=== PATIENT | female | born 1995 | race Caucasian/White ===

== ENCOUNTER 2020-01-04 14:25 | Outpatient (CLI) | payer SELFPAY ==
[2020-01-04] VITALS (20 sets, daily range): BP systolic 115–158; BP diastolic 63–88; PULSE 50–98; TEMP 36.7–36.8; O2SAT 82–100; BMI 25.4
[2020-01-04 16:02] LABS: Absolute Lymphocyte Count 3.28 X10^3/uL (0.83-4.51); Absolute Neutrophil Count 6.6 X10^3/uL (2.0-7.7); Basophil# 0.05 X10^3/uL; Basophil% 0.5 % (0-1); Eosinophil# 0.05 X10^3/uL; Eosinophils% 0.5 % (0-5); Hemoglobin 12.6 g/dL (12.0-15.0); Lymphocyte # 3.28 X10^3/ul (4.0); Lymphocyte % 31.1 % (19-41); Mean Corp Hgb Conc 34.1 g/dL (32-36); Mean Corpuscular Hgb 28.3 pg (27.0-32.0); Mean Corpuscular Volume 83.1 fL (81-99); Mean Platelet Vol. 10.9 fl (6.2-12.0); Monocyte# 0.58 X10^3/uL; Monocyte% 5.5 % (0-10); NRBC Flagged by Analyzer 0 % (0-5); Neutrophil # 6.57 X10^3/uL (2.7-7.7); Neutrophil % 62.1 % (47-70); Platelet Count 234 K/mm3 (150-450); RBC Distribution Width CV 12.4 % (11.6-14.6); RBC Distribution Width SD 37.5 fl (35.1-43.9); Red Blood Count 4.45 M/mm3 (4.2-5.4); White Blood Count 10.6 K/mm3 (4.4-11.0)
[2020-01-04 16:03] LABS: Protein, Urine (Random) 20.9 mg/dL (<11.9); Protein:Creat Ratio 1089 mg/g CRE (0-200)
[2020-01-04 16:19] LABS: AST(SGOT) 173 U/L (15-37); Alanine Aminotransfer ALT/SGPT 241 U/L (13-56); Creatinine, Serum 1.07 mg/dL (0.55-1.02); EST Glomerular Filtration Rate 68 mL/min (>60); Est Glom Filt Rate - Afr Amer 82 mL/min (>60)
[2020-01-04 16:23] LABS: International Normalized Ratio 0.9; Prothrombin Time (Protime)PT. 11.9 SECONDS (11.7-14.9)
[2020-01-04 16:24] LABS: Partial Thromboplast Time 30.9 Seconds (24.1-36.2)
--- NOTE | 2020-01-04 16:36 | HP.PCM_ITS ---
- Problem List (1) HELLP syndrome Status: Acute (2) Late care Status: Acute Comment: received care by visual display manager Linn Manjarrez, first visit at 16 weeks with good dates, no labwork or ultrasounds performed this . History Date of Admission: 01/04/20 Final RADHA: 01/22/20 Gestational age: 37 Weeks and 3 Days History of this : This is a 24 year-old, at 37w3d weeks gestational age presents as a referral from her visual display manager due to elevated blood pressures 140s over 80s at home with abdominal pain and intermittent headaches and visual changes. Patient denies any vaginal bleeding or loss of fluid but complains of abdominal pain and irregular contractions and firm abdomen. heart tones upon initial p resentation are reassuring. Smoking Status: Never smoker Alcohol: None Number of Fetus(es): 1 NST - FHR Rate Baby A Baseline: 130 Variability:: Moderate Accelerations:: 15 x 15 Decelerations:: None NST Reactive:: Yes FHR Category:: Category I Uterine Activity:: q 2-3 History Past Pregnancies: Past Pregnancies Delivery Date Name GA/ Weeks Outcome Route Wt Sex Labor Length Anesthesia Delivery Location Provider FOB Labs: Mom's Problem List Problem Status Onset Code HELLP syndrome Acute O14.20 Late care Acute O09.30 Mom's Labs & Results 01/04/20 01/04/20 01/04/20 15:20 15:20 15:20 WBC 10.6 RBC 4.45 Hgb 12.6 Hct 37.0 MCV 83.1 MCH 28.3 MCHC 34.1 RDW Std Deviation 37.5 RDW Coeff of Xavier 12.4 Plt Count 234 MPV 10.9 Immature Gran % (Auto) 0.300 Neut % (Auto) 62.1 Lymph % (Auto) 31.1 Toole % (Auto) 5.5 Eos % (Auto) 0.5 Baso % (Auto) 0.5 Absolute Neuts (auto) 6.6 Absolute Lymphs (auto) 3.28 Nucleated RBC % 0 PT 11.9 INR 0.9 APTT 30.9 Fibrinogen Creatinine Est GFR (MDRD) Af Amer Est GFR (MDRD) Non-Af Uric Acid AST ALT U Random Total Protein Urine Creatinine Protein/Creatinin Ratio Chlam trachomat DNA PCR Pending N.gonorrhoeae DNA (PCR) Pending Group B Strep DNA Pending Specimen Comment Pending 01/04/20 01/04/20 01/04/20 15:20 15:20 16:00 WBC RBC Hgb Hct MCV MCH MCHC RDW Std Deviation RDW Coeff of Xavier Plt Count MPV Immature Gran % (Auto) Neut % (Auto) Lymph % (Auto) Toole % (Auto) Eos % (Auto) Baso % (Auto) Absolute Neuts (auto) Absolute Lymphs (auto) Nucleated RBC % PT INR APTT Fibrinogen Pending Creatinine 1.07 H Est GFR (MDRD) Af Amer 82 Est GFR (MDRD) Non-Af 68 Uric Acid 6.0 AST 173 H ALT 241 H U Random Total Protein 20.9 H Urine Creatinine 19.20 Protein/Creatinin Ratio 1089 H Chlam trachomat DNA PCR N.gonorrhoeae DNA (PCR) Group B Strep DNA Specimen Comment Social History Smoking Status Never smoker Expected Infant Delivery Method: Spontaneous Vaginal Review of Systems Constitutional: Reports: Malaise. Denies: Fever Eyes: Reports: Blurred vision, Vision Change HEENT: Reports: Head Aches, Visual Changes Cardiovascular: Denies: Chest Pain, Palpitations Respiratory: Denies: Cough, Shortness of Breath, Wheezing Gastrointestinal: Reports: Abdominal Pain. Denies: Diarrhea, Nausea, Vomiting Genitourinary: Denies: Dysuria, Hematuria Gynecological: Denies: Vaginal bleeding Musculoskeletal: Denies: Joint Pain, Muscle pain Skin: Denies: Lesions, Rash Neurological: Denies: Blurred vision, Focal weakness, Headaches Psychiatric: Denies: Anxiety, Depression Endocrine: Denies: Heat/ Cold Intolerance Hematologic/ Lymphatic: Denies: Easy Bruising, Easy Bleeding Physical Exam Vitals: Vital Signs Temp Pulse BP 98.3 F 55 L 133/75 H 01/04/20 15:14 01/04/20 16:21 01/04/20 16:21 General: Alert, Cooperative, No apparent distress HEENT: Atraumatic, Normocephalic. Negative for: Thyromegaly, Lymphadenopathy Cardiovascular: Regular rate Lungs: Normal air movement Abdomen: Soft, Non Tender, Gravid Neurological: Deep Tendon Reflexes 2+/4 and Symmetrical, Neuro grossly intact. Negative for: Clonus BARREL WASHER MACHINE: Normal external genitalia. Negative for: Vulvar lesions Estimated gestational size: Appropriate for gestational size Presentation: Cephalic Cervix Dilation (cm): 3 Station: -1 Assessment/Plan All Active Problems HELLP syndrome (Acute) Late care (Acute) This is a 24 year-old, at 37w3d weeks gestational age presents with HELLP syndrome. recommend immediate transport, given 6g mag bolus then .5g/hr maintenance per MFM instruction. reassuring FHT- on CFM until transport d/w MFM attending, patient, and box blank machine operator helper. late care- draw NOB labs at [facility] prepare for IOL for Inpatient E&M: 13321 Init Hosp L3 52xxx-59xxx: 79593-50 non-stress test Interp
[2020-01-04] MEDS: Magnesium Sulfate 4gm/100mL 4 GM/100 ML IV.SOLN. IV (16:50)
[2020-01-04 16:55] LABS: Bacteria 0 SEEN /hpf (None Seen); Mucous, Urine 0 SEEN /hpf (<or=2+); Red Blood Cells-Urine 0 SEEN /hpf (0-5); Squamous Epithelial Cells - UA 0 SEEN /hpf (5-10); White Blood Cells 0 SEEN /hpf (0-5)
[2020-01-04 17:02] LABS: Color, Urine Yellow (Yellow); Glucose, Dipstick Normal (Normal); Ketone-Dipstick Negative (Negative); Leukocyte Esterase-Dipstick Negative /ul (Negative); Nitrite-Dipstick Negative (Negative); Occult Blood-Urine Negative /ul (Negative); Protein-Dipstick 30 mg/dl (Negative); Urine Bilirubin Dipstick Negative (Negative); Urine Clarity Clear (Clear); Urine Urobilinogen Normal (Normal); Urine pH 6.5 (5.0 - 8.0)
--- NOTE | 2020-01-04 17:03 | NURSING ---
1655 reflexes +2 on bicep and +1 on patellar; lungs clear; no vision changes; pain over rt upper abdomen / epigastric area is still present pt states that it is better than earlier
[2020-01-04 17:06] LABS: Group B Strep DNA By PCR Negative (Negative); Internal Control PASS; Probe Check PASS; Specimen Processing Control PASS
[2020-01-04] MEDS: Magnesium Sulfate 4gm/100mL 2 GM/50 ML IV.SOLN. IV (17:07)
[2020-01-04] MEDS: Magnesium Sulfate 20 GM/500 ML BAG IV (17:17)
[2020-01-04 17:29] LABS: Amphetamine Urine VISTA NEGATIVE (<1000 ng/mL); Barbiturate Urine VISTA NEGATIVE (< 200 ng/mL); Benzodiazepine Urine VISTA NEGATIVE (< 200 ng/mL); Cocaine Urine VISTA NEGATIVE (< 300 ng/mL); Ecstacy Urine VISTA NEGATIVE (< 500 ng/mL); Methadone Urine VISTA NEGATIVE (< 300 ng/mL); PCP Urine VISTA NEGATIVE (< 25 ng/mL); THC Urine VISTA NEGATIVE (< 50 ng/mL); Vista UDS pH Range 6
[2020-01-04 17:39] LABS: Fibrinogen 531 mg/dl (203-444)
[2020-01-04 17:55] LABS: Rubella IgG 0.6 IU/mL
[2020-01-04 19:07] LABS: HIV - WCH Non-Reactive (Nonreactive); Hepatitis B Surface Antigen Non-Reactive (Nonreactive); Hepatitis C Antibody Non-Reactive (Nonreactive)
[2020-01-04 19:08] LABS: Chlamydia Trachomatis by PCR Negative (Negative); Neisserai gonorrhoeae by PCR Negative (Negative); Probe Check PASS; Sample Adequacy Control PASS; Specimen Processing Control PASS
[2020-01-07 01:34] LABS: Rapid Plasmin Reagin (RPR) NONREACTIVE (NONREACTIVE)
== END 2020-01-04 17:40 | disposition short-term general hospital (02) ==
PROVIDERS: Referring Provider Obstetrics & Gynecology; Visit Provider Obstetrics & Gynecology
DX: O14.23 HELLP syndrome (HELLP), third trimester (principal); Z3A.37 37 weeks gestation of pregnancy; O09.33 Supervision of pregnancy with insufficient antenatal care, third trimester
CPT/HCPCS: 36415; 59025; 59050; 80307; 81001; 82565; 82570; 84156; 84450; 84460; 84550; 85025; 85027; 85384; 85610; 85730; 86592; 86703; 86762; 86803; 86850; 86900; 86901; 87081; 87340; 87491; 87591; 87653; 99218; G0378

== ENCOUNTER 2024-06-21 18:27 | Emergency (ER) | payer SELFPAY ==
[2024-06-21 18:28] VITALS: BP 118/65; PULSE 98; RESP 16; TEMP 36.5; O2SAT 118; BMI 25.8
--- NOTE | 2024-06-21 19:03 | EKG12_ITS ---
Test Reason : LOWER EXTREM Blood Pressure : / mmHG Vent. Rate : 103 BPM Atrial Rate : 103 BPM P-R Int : 128 ms QRS Dur : 072 ms QT Int : 316 ms P-R-T Axes : 021 033 027 degrees QTc Int : 413 ms Sinus tachycardia Low voltage QRS Borderline ECG Confirmed by Arun Reeder ([id number]), editor department OTIS YIP ([id number]) on 06/23/2024 8:24:30 AM Referred By: TL Confirmed By:Arun Reeder
[2024-06-21 19:21] LABS: Absolute Lymphocyte Count 2.06 X10^3/uL (0.83-4.51); Basophil# 0.05 X10^3/uL; Basophil% 0.4 % (0-1); Eosinophil# 0.14 X10^3/uL; Hematocrit 29.9 % (37-47); Lymphocyte # 2.06 X10^3/ul (0.83-4.51); Lymphocyte % 15.4 % (19-41); Mean Corp Hgb Conc 33.4 g/dL (32-36); Mean Corpuscular Hgb 29.2 pg (27.0-32.0); Mean Corpuscular Volume 87.2 fL (81-99); Mean Platelet Vol. 9.1 fl (6.2-12.0); Monocyte# 1.09 X10^3/uL; Monocyte% 8.2 % (0-10); NRBC Flagged by Analyzer 0 % (0-5); Neutrophil # 9.95 X10^3/uL (2.7-7.7); Neutrophil % 74.5 % (47-70); Platelet Count 255 K/mm3 (150-450); RBC Distribution Width CV 13.3 % (11.6-14.6); RBC Distribution Width SD 42.4 fl (35.1-43.9); Red Blood Count 3.43 M/mm3 (4.2-5.4); White Blood Count 13.4 K/mm3 (4.4-11.0)
--- NOTE | 2024-06-21 19:33 | EX.ED.DYSGE1 ---
HPI History of Present Illness Chief Complaint: Lower Extremity Injury Informant: patient and spouse/S.O. Narrative Narrative: G4 31-week gestation followed by lead laying and gluing machine operator presents 2-week history increasing pain right lower extremity. History of varicose veins manage with home care. Discussed similar symptoms past she states yes and was seen by her lead laying and gluing machine operator previously. She has has any diagnosed deep vein thrombosis history. No history of PE. However also been reporting some chest pains and shortness of breath. No tobacco history. Prior similar symptoms: Yes PFSH PFSH Medical History DVT (deep vein thrombosis) in Allergy/AdvReac Type Severity Reaction Status Date / Time No Known Allergies Allergy Verified 06/21/24 18:28 Social History Smoking Status: Never smoker ROS ROS ED Constitutional Constitutional ED: Denies chills, fever(s) or sweats Eyes Eyes: Denies change in vision ENT ENT ED: Denies dysphagia or sore throat Cardiovascular Cardiovascular: Reports chest pain; Denies leg edema, palpitations or racing heartbeat Respiratory/Chest Respiratory/Chest: Reports dyspnea; Denies cough or dyspnea on exertion Gastrointestinal Gastrointestinal: Denies abdominal pain, diarrhea, nausea or vomiting Genitourinary Genitourinary ED: Denies dysuria, hematuria or urinary frequency Musculoskeletal Musculoskeletal: Reports extremity pain; Denies back pain or neck pain Integumentary Denies rash or wounds Neurologic Neurologic: Denies headache(s), paresthesias or weakness EXAM Physical Exam Const Vital Signs: 06/21/24 18:28 06/21/24 22:00 Temperature 97.7 F L 98.4 F Temperature Source Oral Pulse Rate 98 106 H Respiratory Rate 16 18 Blood Pressure 118/65 109/69 Blood Pressure Mean 82 82 Pulse Ox 118 97 Oxygen Delivery Method Room Air Positive well nourished and well developed General Appearance ED: well developed and NAD HEENT Reports moist mucous membranes normocephalic and atraumatic Eyes EOMs intact bilaterally and conjunctivae normal General Eye ED: Yes normal appearance of both eyes Neck no lymphadenopathy and supple General: Negative for tenderness Chest Wall Chest: Negative for tenderness Resp normal respiratory effort and normal air movement Effort and Inspection: symmetric chest movement; Negative for respiratory distress Cardio regular rate, regular rhythm and no murmurs Peripheral Pulses: pulses 2+ throughout GI normal to inspection, nondistended, normoactive bowel sounds and non-tender GI Narrative: Gravid abdomen. Nontender. Palpation: Negative for guarding or rebound tenderness present Back/Spine no CVA tenderness and no thoracic nor lumbar tenderness Extremity Extremity Narrative: Right lower extremity: Extensive varicose veins noted distal leg anteriorly. There is erythema tenderness along these varicosities. This also extends up to the medial thigh with tenderness. No calf tenderness. Left lower extremity: Extensive varicose veins more distal leg anteriorly extends down to the foot. Nontender. No erythema of this leg. Neuro oriented x3 and no sensory deficits noted Sensorium / Orientation: awake and alert Skin no rashes or lesions noted and no wounds MDM MDM MDM Narrative Medical decision making narrative: Interventions / MDM: Differential diagnosis: Superficial thrombophlebitis, varicose veins, third trimester Diagnosis considered but do not suspect: DVT, negative bedside ultrasound with formal ultrasound pending. Pulmonary embolism however CT negative. ACS however EKG no ischemic findings with negative cardiac enzymes. My EKG interpretation: Sinus rate of 103, no ST changes. T wave version V2 and lead III. Imaging independently reviewed and interpreted by myself: CT angiogram chest: No PE. Also read by radiology. External documents reviewed: N/A Test considered but not ordered: DVT studies secondary to no availabilities with formal 1 ordered outpatient for tomorrow. ED course: Patient clinically has superficial thrombophlebitis that extends up to her medial thigh. There is no current formal ultrasound available. She complains of chest pains and shortness of breath. She is 31 weeks . Risk factors for DVTs. This time we will perform cardiac workup along with D-dimer. EKG sinus tachycardia. 2009: I performed bedside ultrasound superficial vein thrombus in her inner thighs. I was able to identify deep veins, there is no thrombus or any compression. heart tones obtained bedside 144 positive movement. Labs are normal troponin D-dimer was 19.92. Patient will be sent for CT angiogram to rule out pulmonary embolism. Will order Tylenol for symptom control. 2129: CT PE study negative for any acute process. Awaiting delta troponin results. Discussed with patient we will plan for formal DVT studies as an outpatient. With -2 point ultrasound on exam for deep vein thrombosis I do not feel anticoagulants are necessary. 2142: Delta troponin negative. She is given follow-up with vascular surgery as an outpatient with extensive varicose veins. Discussed likely dental interventional after delivery. Patient understands this. all questions were answered. Re-evaluation: stable Disposition discussed with patient/family/significant other: Patient and significant other Case discussed with consulting clinician: N/A This note was generated with [employer] dictation software. It may contain incorrect words, spelling, and punctuation that were not noted in checking the note before signing. Lab Data Attestation: I reviewed the patient's lab results. Labs: Laboratory Results - last 24 hr 06/21/24 06/21/24 18:49 21:12 WBC 13.4 H RBC 3.43 L Hgb 10.0 L Hct 29.9 L MCV 87.2 MCH 29.2 MCHC 33.4 RDW Std Deviation 42.4 RDW Coeff of Xavier 13.3 Plt Count 255 MPV 9.1 Immature Gran % (Auto) 0.500 Neut % (Auto) 74.5 H Lymph % (Auto) 15.4 L Jerome % (Auto) 8.2 Eos % (Auto) 1.0 Baso % (Auto) 0.4 Absolute Neuts (auto) 10.0 H Absolute Lymphs (auto) 2.06 Nucleated RBC % 0 D-Dimer Quant (PE/DVT) 19.92 H* Sodium 132 L Potassium 3.6 Chloride 103 Carbon Dioxide 21.0 Anion Gap 8 BUN 5 L Creatinine 0.47 L Estim Creat Clear Calc 164.42 Est GFR (MDRD) Af Amer 204 Est GFR (MDRD) Non-Af 169 BUN/Creatinine Ratio 10.6 Glucose 106 Calcium 9.1 Troponin I High Sens < 3 L < 3 L Radiography Diagnostic Testing: Clinical Impression(s) from Imaging Studies Chest CTA 06/21/24 19:53 IMPRESSION: undefined Discharge Plan Triage Chief Complaint: Lower Extremity Injury ED Provider: Joseph Pendleton Dx/Rx/DC Orders Clinical Impression: Superficial thrombophlebitis during in third trimester, Varicose vein of leg, Chest pain Instructions: ED Chest Pain, Uncertain Cause, ED Thrombophlebitis, Superficial, ED Varicose Veins Other Ambulatory Orders: Venous Duplex US - Igor Extrem (Stat) Facility: [facility] - Location: [facility] Ordered By: Dr. Joseph Pendleton Primary Care Provider: Care Physician,No Primary Referrals: Sharif Louis MD [Med Staff - Active Staff] - 1-2 Weeks NOT,DEFINED [Non-Staff] - Activity Restrictions/Additional Instructions: Your cardiac workup negative. CT PE study negative. Bedside ultrasound did not note any deep vein thrombosis. Confirm superficial thrombophlebitis all the way up to your thigh. Use Tylenol 1 g every 6 hours as needed for pain. Avoid NSAIDs since you are . heart tone 144. Follow-up with vascular surgery Dr. Louis for evaluation. Follow-up with your lead laying and gluing machine operator. Print Language: Belarusian Disposition Disposition: Home, Self Care Discharge Date/Time: 06/21/24 22:01
[2024-06-21 19:36] LABS: Anion Gap 8 (5-15); BUN 5 mg/dL (7-18); BUN/Creat Ratio 10.6 RATIO (10-20); Calcium,Total 9.1 mg/dL (8.5-10.1); Chloride 103 mmol/L (98-107); Creatinine, Serum 0.47 mg/dL (0.55-1.02); EST Glomerular Filtration Rate 169 mL/min (>60); Est Glom Filt Rate - Afr Amer 204 mL/min (>60); Estimated Creatinine Clearance 164.42 ml/min; Glucose 106 mg/dL (74-106); Potassium 3.6 mmol/L (3.5-5.1); Sodium Level 132 mmol/L (136-145); Troponin-I HS (w/2H Reflex) < 3 pg/mL (3.0-54.0)
[2024-06-21 19:52] LABS: D-Dimer Quantitative (DVT/PE) 19.92 FEU/ug/m (0.27-0.49)
--- NOTE | 2024-06-21 19:53 | CT_ITS ---
STUDY: CTA CHEST REASON FOR EXAM: Female, 29 years old. Dyspnea, elevated dimer RADIATION DOSAGE (If Supplied By Facility): CTDIvol = ( 6.54 ) mGy, DLP = ( 167.11 ) mGycm TECHNIQUE: The examination was performed with the intravenous administration of IV 75mL Isovue-370. Post-processing of the angiographic images was performed, with multiplanar reformation and 3D reconstruction. Individualized dose optimization techniques were used for this CT. COMPARISON: None. FINDINGS: Tubes and lines: 1. No life-support noted. CTA: PULMONARY ARTERIES: There is normal configuration and contrast opacification of pulmonary outflow tract, main pulmonary arteries, segmental and intersegmental pulmonary arteries bilaterally without evidence of intraluminal filling defects. AORTIC ARCH: The aortic arch and descending aorta have normal configuration. No evidence of dissection or aneurysmal dilatation. HEART: Cardiac contour is normal. No evidence pericardial effusion. CT CHEST: LUNGS: [Unremarkable. No mass. No consolidation. PLEURAL SPACES: Unremarkable, no effusion or pneumothorax.. MEDIASTINUM AND LYMPH NODES: Unremarkable. No significant adenopathy. BONES: Unremarkable ABDOMEN: Within normal limits. Other: None IMPRESSIONS: 1. No CTA evidence of pulmonary embolism. 2. No CTA evidence of aortic aneurysm or dissection 3. Normal CT appearance of the heart and pericardium. 4. No focal infiltrate consolidation or effusion noted. Electronically Signed: Geoffrey Conley MD at 21:23 EDT , CT/CTA Chest W/WO Contrast IMPRESSION: undefined
[2024-06-21] MEDS: Acetaminophen 500 MG Tablet 1000 MG PO (20:53)
[2024-06-21 21:08] LABS: Reflex Troponin-HS? (from REC) Y
[2024-06-21 21:42] LABS: Troponin-I HS < 3 pg/mL (3.0-54.0)
[2024-06-21 22:00] VITALS: BP 109/69; PULSE 106; RESP 18; TEMP 36.9; O2SAT 97
== END 2024-06-21 22:01 | disposition home or self-care (01) ==
PROVIDERS: Emergency Provider Emergency Medicine; Visit Provider Emergency Medicine
DX: O22.23 Superficial thrombophlebitis in pregnancy, third trimester (principal); I80.01 Phlebitis and thrombophlebitis of superficial vessels of right lower extremity; O22.03 Varicose veins of lower extremity in pregnancy, third trimester; I83.811 Varicose veins of right lower extremity with pain; I83.92 Asymptomatic varicose veins of left lower extremity; O99.891 Other specified diseases and conditions complicating pregnancy; R07.9 Chest pain, unspecified; Z3A.31 31 weeks gestation of pregnancy
CPT/HCPCS: 71275; 80048; 84484; 85025; 85379; 93005; 99284; Q9967; A4216

== ENCOUNTER 2024-06-22 10:50 | Outpatient (CLI) | payer SELFPAY ==
--- NOTE | 2024-06-22 10:57 | VDLE_ITS ---
Reason For Study: Pain BLE RIGHT LEFT CFV is compressible, spontaneous, phasic, GSV is normal. competent and demonstrates normal CFV is compressible, spontaneous, phasic, augmentation. competent, and demonstrates normal FV is compressible, spontaneous, phasic, augmentation. competent and demonstrates normal FV is compressible, spontaneous, phasic, augmentation. competent and demonstrates normal POP V is compressible, spontaneous, phasic, augmentation. competent and demonstrates normal POP V is compressible, spontaneous, phasic, augmentation. competent and demonstrates normal T/P Trunk is compressible. augmentation. PTV is compressible. T/P Trunk is compressible. RT PerV is compressible. PTV is compressible. Rt GSV is DILATED and NON COMPRESSIBLE from LT PerV is compressible. prox calf to prox thigh consistent with acute SVT, compressible at prox thigh to deep junction Large DILATED and NON COMPRESSIBLE Varicosity noted from ankle to groin Rt Groin lymph node noted measuring 1.20cm x 2.72cm. Procedure This is a venous duplex using B-mode, color flow and spectral Doppler. Exam performed in department. A preliminary report was called and/or faxed to ED. Patient taken to ED for evaluation. VL/Venous Duplex US - Igor Extrem Interpretation Summary Acute superficial vein thrombosis is noted in the right great saphenous vein fr om proximal thigh to calf and adajacent varicosities. Deep veins of the bilateral lower extremities are patent and compressible segme ntally. There is no evidence of bilateral lower extremity deep vein thrombosis. The left great saph enous vein appears patent and compressible segmentally. Ordering Physician: Joseph Pendleton Referring Physician: Joseph Pendleton Performed By: Arlene Barahona, MIRELA, RVT
[2024-06-22 15:29] VITALS: BMI 25.8
[2024-06-22 15:34] VITALS: PULSE 106; O2SAT 98
[2024-06-22 15:35] VITALS: BP 101/56; PULSE 105; PULSE 40; O2SAT 81
--- NOTE | 2024-06-23 14:46 | OB.TRI.PN_ITS ---
Progress Notes Date of Service: 06/22/24 Progress Note: patient seen for superficial clot, large so recommended to start on lovenox by vascular. 140 moderate variability reactive no decelerations category I tracing [place]: regular 31weeks has been seeing community services coordinator recommend establishig care with us now for hospitla due to complication Charges/Coding Procedures Urinary/Genital 52xxx-59xxx: [id number] non-stress test Interp Assessment & Plan (1) Superficial thrombophlebitis during in third trimester: COMMENT: lovenox recommended by vascular. (2) Late care: COMMENT: saw joby vásquez in past, now seeing milagro hurd this . recommend care by physician and plan for hospital
== END 2024-06-22 16:12 | disposition home or self-care (01) ==
LOC: CVS 10:53 → WPOUT 15:14 → WP 15:15
PROVIDERS: Referring Provider Emergency Medicine; Visit Provider Obstetrics & Gynecology
DX: O22.23 Superficial thrombophlebitis in pregnancy, third trimester (principal); I80.01 Phlebitis and thrombophlebitis of superficial vessels of right lower extremity; Z3A.31 31 weeks gestation of pregnancy; O09.33 Supervision of pregnancy with insufficient antenatal care, third trimester
CPT/HCPCS: 59025; 59050; 93970; 99221; G0378

== ENCOUNTER 2024-06-22 11:58 | Emergency (ER) | payer SELFPAY ==
[2024-06-22 12:00] VITALS: BP 112/68; PULSE 113; RESP 18; TEMP 36.9; O2SAT 100
--- NOTE | 2024-06-22 12:07 | EX.ED.DYSGE1 ---
HPI History of Present Illness Chief Complaint: Lower Extremity Injury [facility] Medical History DVT (deep vein thrombosis) in Home Medications ?Medication ?Instructions ?Recorded ?Last Taken ?Type enoxaparin 80 mg/0.8 mL 80 mg (0.8 mL) subcut DAILY 30 06/22/24 Unknown Rx subcutaneous syringe (Lovenox) days #24 mL Allergy/AdvReac Type Severity Reaction Status Date / Time No Known Allergies Allergy Verified 06/22/24 12:00 Social History Smoking Status: Never smoker EXAM Physical Exam Const Vital Signs: 06/22/24 12:00 Temperature 98.5 F Temperature Source Oral Pulse Rate 113 H Respiratory Rate 18 Blood Pressure 112/68 Blood Pressure Mean 82 Pulse Ox 100 Oxygen Delivery Method Room Air MDM MDM MDM Narrative Medical decision making narrative: HISTORY OF PRESENT ILLNESS: 29-year-old female presents with positive SVT. She is doing weeks . No chest pain or shortness breath reported at this time. REVIEW OF SYSTEMS: Pertinent positives: Leg swelling Pertinent negatives: Chest pain, shortness of breath PHYSICAL EXAM: Nursing triage notes reviewed, Vital signs reviewed Constitutional: please see mdm HENT: MMM Eyes: Pupils equal round and reactive to light, Extraocular muscles intact Neck: No stridor, no JVD, full neck ROM Lungs: Clear to auscultation, No wheezing or rales. No increased work of breathing, no conversational dyspnea, no accessory muscle use, no nasal flaring. No respiratory distress noted Heart: Regular rate and rhythm, No murmurs, No rubs and No gallops, 2+ distal pulses (radial, femoral, posterior tibial) in all extremities Abdomen: Soft, gravid uterus, there is no tenderness, rigidity, rebound or guarding, no obvious peritoneal signs, no palpable pulsatile abdominal masses, no auscultated abdominal bruit : No CVAT Extremities: TTP right lower extremity. Neuro: No focal neurological deficits, cranial nerves II through XII intact, 5/5 strength in all extremities. Intact sensation to light touch in all extremities, 2+ reflexes bilateral patella tendons. Normal gait. No ataxia. Skin: No rash or lesions noted MEDICAL DECISION MAKING: Chief Complaint: Positive SVT External records reviewed: Reviewed prior OB visit Factors affecting care: Hellp syndrome, third trimester Social determinants of health: none History obtained from others: none Consults: MORTGAGE LOAN OFFICER ORIGINATOR (Dr. Parekh), vascular surgery (Dr. Graves) MDM Narrative: Patient was initially tachycardic with a rate of 113 otherwise afebrile and nontoxic-appearing. Exam with TTP to right lower quadrant. Intact pulses. Abdomen soft, gravid uterus. Imaging studies reviewed: Noted SVT, extensive from the proximal calf to proximal thigh Discussed with MORTGAGE LOAN OFFICER ORIGINATOR and vascular surgery who both agreed with initiating anticoagulation at this time. There is no bleeding diathesis noted. Patient is appropriate for Lovenox we will give prescription for Lovenox as well. The patient and/or family, caregivers express understanding. The patient and/or family, caregivers agrees with the plan. Shared decision making: I will have a discussion with the patient and or visitors regarding risk/benefits of further testing or admission. They will be made aware of of the risk/benefits inherent in this decision they will be given the opportunity to voice understanding. Total critical care time today provided was at least 0 minutes. This excludes separately billable procedures. Critical care time (if documented) is secondary to the patient having high probability of clinically significant/life threatening deterioration in the patient's condition which required my urgent intervention. Impression: 1. Acute SVT 2. Third trimester Dispo: Discharge home This note was generated with [employer] dictation software. It may contain incorrect words, spelling, and punctuation that were not noted in review of the chart prior to signing. Discharge Plan Triage Chief Complaint: Lower Extremity Injury ED Provider: Low Brody Dx/Rx/DC Orders Clinical Impression: Superficial thrombophlebitis during in third trimester Instructions: ED Thrombophlebitis, Superficial Prescriptions: New enoxaparin [Lovenox] 80 mg/0.8 mL syringe 80 mg subcut DAILY 30 Days Qty: 24 0RF Primary Care Provider: Care Physician,No Primary Referrals: Reyna Parekh MD [Med Staff - Active Staff] - Activity Restrictions/Additional Instructions: Thank you for trusting us with your care today! Please take Tylenol (2 pills, 650 mg). Please take Lovenox as prescribed. Please return to the emergency department if your symptoms change or worsen. Please follow with your primary care physician for further outpatient evaluation and management. Print Language: Pashto Disposition Disposition: Home, Self Care
[2024-06-22 13:09] VITALS: BMI 26.9
[2024-06-22 13:14] VITALS: BMI 26.9
[2024-06-22] MEDS: Enoxaparin 80 MG/0.8 ML Syringe 70 MG SC (14:35)
[2024-06-22 15:14] VITALS: BP 130/78; PULSE 80; RESP 16; TEMP 36.6; O2SAT 99
== END 2024-06-22 15:18 | disposition home or self-care (01) ==
PROVIDERS: Emergency Provider Emergency Medicine; Visit Provider Emergency Medicine
DX: O22.23 Superficial thrombophlebitis in pregnancy, third trimester (principal); I80.01 Phlebitis and thrombophlebitis of superficial vessels of right lower extremity; Z3A.00 Weeks of gestation of pregnancy not specified; Z87.59 Personal history of other complications of pregnancy, childbirth and the puerperium
CPT/HCPCS: 96372; 99282

== ENCOUNTER → 2024-06-29 | Outpatient (CLI) | payer SELFPAY ==
--- NOTE | 2024-06-29 11:35 | VDLE_ITS ---
Reason For Study: HX SVT RIGHT LEFT GSV is normal. FV is compressible, spontaneous, phasic, CFV is compressible, spontaneous, phasic, competent and demonstrates normal competent and demonstrates normal augmentation. augmentation. FV is compressible, spontaneous, phasic, competent and demonstrates normal augmentation. POP V is compressible, spontaneous, phasic, competent and demonstrates normal augmentation. T/P Trunk is compressible. PTV is compressible. RT PerV is compressible. Rt GSV is DILATED and NON COMPRESSIBLE from dist calf to prox thigh consistent with acute SVT, compressible at prox thigh to deep junction Large DILATED and NON COMPRESSIBLE Varicosity noted in thigh. Procedure This is a venous duplex using B-mode, color flow and spectral Doppler. Exam performed in department. The exam was diagnostic. A preliminary report was called and/or faxed to Dr. Parekh. VL/Venous Duplex US, Unilateral Interpretation Summary Acute superficial vein thrombosis noted in the right great saphenous vein from calf to mid thigh and adjacent varicosities. No significant change from prior exam. Ordering Physician: Reyna Parekh Referring Physician: Reyna Parekh Performed By: Chad Coombs RVT
[2024-06-29 12:25] LABS: Absolute Lymphocyte Count 1.92 X10^3/uL (0.83-4.51); Absolute Neutrophil Count 9.2 X10^3/uL (2.0-7.7); Basophil# 0.06 X10^3/uL; Basophil% 0.5 % (0-1); Eosinophils% 0.8 % (0-5); Hemoglobin 10.1 g/dL (12.0-15.0); Lymphocyte # 1.92 X10^3/ul (0.83-4.51); Lymphocyte % 15.8 % (19-41); Mean Corp Hgb Conc 33.7 g/dL (32-36); Mean Corpuscular Volume 86.2 fL (81-99); Mean Platelet Vol. 8.4 fl (6.2-12.0); Monocyte# 0.78 X10^3/uL; Monocyte% 6.4 % (0-10); NRBC Flagged by Analyzer 0 % (0-5); Neutrophil # 9.19 X10^3/uL (2.7-7.7); Neutrophil % 75.6 % (47-70); Platelet Count 475 K/mm3 (150-450); RBC Distribution Width SD 40.8 fl (35.1-43.9); Red Blood Count 3.48 M/mm3 (4.2-5.4); White Blood Count 12.2 K/mm3 (4.4-11.0)
[2024-06-29 13:23] LABS: HIV - WCH Non-Reactive (Nonreactive); Hepatitis B Surface Antigen Non-Reactive (Nonreactive); Hepatitis C Antibody Non-Reactive (Nonreactive); Rubella IgG Non-Reactive (Nonreactive); Syphilis Antibodies Non-reactive
[2024-06-29 15:07] LABS: Hemoglobin A1c 5.1 % (3.8-5.6)
[2024-07-03 16:10] LABS: Anti-Thrombin 3 AG, Immunol 59 % (72-124); Antithrombin 3 Function 104 % (75-135)
== END | disposition home or self-care (01) ==
PROVIDERS: Referring Provider Obstetrics & Gynecology; Visit Provider Obstetrics & Gynecology
DX: O09.90 Supervision of high risk pregnancy, unspecified, unspecified trimester (principal); O22.20 Superficial thrombophlebitis in pregnancy, unspecified trimester; I82.811 Embolism and thrombosis of superficial veins of right lower extremity; Z3A.00 Weeks of gestation of pregnancy not specified
CPT/HCPCS: 36415; 81241; 83036; 85025; 85300; 85301; 86703; 86762; 86780; 86803; 86850; 86900; 86901; 87340; 93971

== ENCOUNTER → 2024-06-30 | Outpatient (CLI) | payer SELFPAY ==
--- NOTE | 2024-06-30 13:00 | US_ITS ---
STUDY: SECOND AND THIRD TRIMESTER OBSTETRICAL ULTRASOUND REASON FOR EXAM: Female, 29 years old Anatomy for late establish care LMP: November 16, 2023. TECHNIQUE: Transabdominal TECHNICAL QUALITY: Adequate. PRIOR ULTRASOUND: None. FINDINGS: There is a single intrauterine fetus. The fetus is in a cephalic presentation. There is demonstrated cardiac activity with a heart rate of 123 bpm. There is a normal amniotic fluid volume. The largest amniotic fluid pocket measures 5.1 cm. The amniotic fluid index (SERGIO) is 15.6 cm. The placenta is anterior in location and is not low lying. There are Grade 1 placental changes. The cervix measures 4.5 cm in length. The bilateral adnexal regions are normal. BIOMETRY: BPD: 8.3 cm: 33 weeks, 3 days: 71% HC: 30.1 cm: 33 weeks, 2 days: 36% AC: 28.2 cm: 32 weeks, 1 days: 43% FL: 6.170: 31 weeks, 5 days: 18% CI: 80% FL/BPD: 73% FL/HC: 20% FL/AC: 22% HC/AC: 1.07 age by current US: 32 weeks, 4 days. RADHA by current US: August 21, 2024. Estimated weight: 1949 grams, +/- 292 grams, 37 %. Age by LMP: 32 weeks, 3 days. RADHA by LMP: August 22, 2024. ANATOMY: Gender: Female Cranium: Normal lateral ventricles. Normal choroid plexus. Normal cerebellum. Normal cisterna magna. Normal face, nose and lips. Chest: Normal 4-chamber heart. Abdomen/Pelvis: Normal diaphragm. Normal stomach. Normal abdominal wall. Normal cord insertion. Normal 3 vessel cord. Normal kidneys. Normal bladder. Spine: Limited visualization of the spine due to the age and lie. Extremities: Normal bilateral upper extremities. Normal bilateral lower extremities. US/OB Anatomy Scan IMPRESSION: Single live intrauterine gestation with a mean gestational age of 32 weeks and 4 days. Electronically Signed: Carlos Hyman MD at 14:38 EDT ,
== END | disposition home or self-care (01) ==
PROVIDERS: Referring Provider Obstetrics & Gynecology; Visit Provider Obstetrics & Gynecology
DX: O09.30 Supervision of pregnancy with insufficient antenatal care, unspecified trimester (principal); Z3A.00 Weeks of gestation of pregnancy not specified
CPT/HCPCS: 76805

== ENCOUNTER → 2024-07-16 | Outpatient (CLI) | payer SELFPAY | END | disposition home or self-care (01) | LOC: CVS 09:37 | PROVIDERS: Referring Provider Physician Assistant; Visit Provider Physician Assistant | DX: O22.00 Varicose veins of lower extremity in pregnancy, unspecified trimester (principal); I82.811 Embolism and thrombosis of superficial veins of right lower extremity; Z3A.00 Weeks of gestation of pregnancy not specified | CPT/HCPCS: 93971 ==

== ENCOUNTER → 2024-07-27 | Outpatient (CLI) | payer SELFPAY ==
[2024-07-28 21:07] LABS: Chlamydia By Nucleic Acid AMP Negative (Negative); Gonococcus By Nucleic Acid AMP Negative (Negative)
== END | disposition home or self-care (01) ==
LOC: BWCLAB 11:18
PROVIDERS: Obstetrics & Gynecology; Referring Provider Advanced Practice Midwife; Visit Provider Advanced Practice Midwife
DX: O09.90 Supervision of high risk pregnancy, unspecified, unspecified trimester (principal); Z3A.00 Weeks of gestation of pregnancy not specified
CPT/HCPCS: 87081; 87491; 87591

== ENCOUNTER → 2024-08-05 | Outpatient (CLI) | payer SELFPAY ==
--- NOTE | 2024-08-05 12:48 | VDLE_ITS ---
Reason For Study: Swelling RIGHT LEFT CFV is compressible, spontaneous, phasic, GSV is normal. competent and demonstrates normal CFV is compressible, spontaneous, phasic, augmentation. competent, and demonstrates normal FV is compressible, spontaneous, phasic, augmentation. competent and demonstrates normal FV is compressible, spontaneous, phasic, augmentation. competent and demonstrates normal POP V is compressible, spontaneous, phasic, augmentation. competent and demonstrates normal POP V is compressible, spontaneous, phasic, augmentation. competent and demonstrates normal T/P Trunk is compressible. augmentation. PTV is compressible. T/P Trunk is compressible. RT PerV is compressible. PTV is compressible. Rt GSV Acute superficial vein thrombosis is LT PerV is compressible. noted from mid thigh to prox calf. Thrombus filled varicose veins noted in the GSV junction to prox thigh and mid to distal anterior dist calf/ankle. calf are compressible. Thrombus filled varcose veins noted in the prox thigh and anterior prox to distal calf. Procedure This is a venous duplex using B-mode, color flow and spectral Doppler. Exam performed in department. A preliminary report was called and/or faxed to Dr. Louis. VL/Venous Duplex US - Igor Extrem Interpretation Summary Acute superficial vein thrombosis noted in the right great saphenous vein in mi d thigh to calf; unchanged. Acute superficial vein thrombosis noted in left distal calf varicosities. Deep veins of the bilateral lower extremities are patent and compressible segme ntally. There is no evidence of bilateral lower extremity deep vein thrombosis. Ordering Physician: Teena Castro Performed By: Mounika Holloway RVT and Student
== END | disposition home or self-care (01) ==
LOC: CVS 12:47
PROVIDERS: Referring Provider Physician Assistant; Visit Provider Physician Assistant
DX: O22.00 Varicose veins of lower extremity in pregnancy, unspecified trimester (principal); I82.811 Embolism and thrombosis of superficial veins of right lower extremity; Z3A.00 Weeks of gestation of pregnancy not specified
CPT/HCPCS: 93970

== ENCOUNTER 2024-08-15 08:47 | Inpatient (IN) | payer SELFPAY ==
[2024-08-15] VITALS (47 sets, daily range): BP systolic 97–129; BP diastolic 55–77; PULSE 55–94; RESP 12–16; TEMP 36.2–36.8; O2SAT 96–100; BMI 25.7
[2024-08-15] MEDS: Lactated Ringers 1,000 ML 50 ML IV (09:05)
[2024-08-15 09:23] LABS: Absolute Lymphocyte Count 2.28 X10^3/uL (0.83-4.51); Basophil# 0.05 X10^3/uL; Basophil% 0.5 % (0-1); Eosinophil# 0.09 X10^3/uL; Eosinophils% 0.9 % (0-5); Hematocrit 35.6 % (37-47); Hemoglobin 11.6 g/dL (12.0-15.0); Lymphocyte # 2.28 X10^3/ul (0.83-4.51); Lymphocyte % 22.5 % (19-41); Mean Corp Hgb Conc 32.6 g/dL (32-36); Mean Corpuscular Hgb 27.4 pg (27.0-32.0); Mean Platelet Vol. 9.7 fl (6.2-12.0); Monocyte# 0.68 X10^3/uL; Monocyte% 6.7 % (0-10); NRBC Flagged by Analyzer 0 % (0-5); Neutrophil # 7.01 X10^3/uL (2.7-7.7); Platelet Count 304 K/mm3 (150-450); RBC Distribution Width CV 15.4 % (11.6-14.6); RBC Distribution Width SD 46.1 fl (35.1-43.9); Red Blood Count 4.24 M/mm3 (4.2-5.4); White Blood Count 10.2 K/mm3 (4.4-11.0)
[2024-08-15 10:56] LABS: Syphilis Antibodies Non-reactive
--- NOTE | 2024-08-15 11:18 | HP.PCM.OB_ITS ---
HPI - General General Date of Admission: 08/15/24 Date of Service: 08/15/24 HPI Narrative MIGUEL SANDERSON, is a 29 F at 39.0 weeks gestation who presents to unit for Induction of labor for SVTs. Maternal Data Information RADHA Calculator Estimated Delivery Date Method Current WG Current Estimate 08/22/24 LMP (Certain) 39w 0d Final RADHA: 08/22/24 Final RADHA Source: US >20 weeks Gestational age: 39.0 PFSH PFSH Medical History (Updated 08/15/24 @ 11:21 by Maddi Bosch CNM) DVT (deep venous thrombosis) depression Pre-eclampsia Gestational HTN Kidney stone Home Medications ?Medication ?Instructions ?Recorded ?Last Taken ?Type vit no.133-ferrous 1 tab PO DAILY pregnancyu 06/22/24 06/22/24 07:00 History fumarate 28 mg-folic acid 800 mcg 1 TAB tablet () enoxaparin 80 mg/0.8 mL 80 mg (0.8 mL) subcut DAILY dvt 30 06/30/24 08/14/24 Rx subcutaneous syringe (Lovenox) days #24 mL Allergy/AdvReac Type Severity Reaction Status Date / Time No Known Allergies Allergy Verified 08/15/24 09:40 Family History Aunt Bleeding disorder Heart disease Hypertension Myocardial infarction Mother Heart disease Hypertension Myocardial infarction Thyroid disorder Uncle Heart disease Hypertension Myocardial infarction Grandfather Heart disease Hypertension Surgical History History of appendectomy (~2021) Social History adopted: No household members: spouse and children housing: house number of children: 3 current occupation: [employer] current occupational exposures/hazards: No pets and animals: Yes pets and animals: dog(s) and farm animals Smoking Status: Never smoker alcohol intake: never substance use type: does not use do you feel safe at home: Yes additional social history: Dany History Elective abortions Hx Para 3 Spontaneous abortions Hx # Term Pregnancies Ectopic pregnancies Hx # Pregnancies Multiple births # of living children Past Pregnancies Del. Date Name GA/Weeks Outcome Route Bth Weight Gen Labor Lgth Anesthesia Del Locatn Provider FOB Unknown 2019 Osvaldo Unknown 2021 Shannon Unknown 2022 Joby Visit Details Expected Delivery Route/Plan Labor Preferences- CB/BF classes: [] labor support person: [] labor intervention preferences: [] pain management options preferred: [] cut cord/dad catch: [] : [] PP control planned: [] discussed possible routes of delivery and associated risks: [] special requests: [] Plans Covid status: [] Flu vaccine: declined Tdap vaccine: declined Rhogam: na LARC form signed: declined movement and labor precautions reviewed. Problem list reviewed and updated with the most current plan of care details and appropriate orders placed. Relevant counseling for the gestational age provided. Continue routine care and follow up unless otherwise noted in visit notes/problem list details OB Flowsheet Initial Weight: Not Recorded Date -?-?-?-?-?-?-?-?-?-?-?-?- EGA Weight BP Urine Prot -?-?-?-?-?-?-?-?-?-?-?--?- Glucose FHR FuHt Pres Dilation -?-?-?-?-?-?-?-?-?-?-?-?- Effaced St Visit Note 06/29/24 -?-?-?-?-?-?-?-?-?-?-?-?- 32w 2d 142 lb 113/75 Negative -?-?-?-?-?-?-?-?-?-?-?-?- Negative 145 28 -?-?-?-?-?-?-?-?-?-?-?-?- SM- transfer of care, first positive test december 26. SM- transfer of care, first positive test december 26. anatomy scan scheduled tomorrow. very large nodular right leg, repeat scan ordered today and vascular follow visit tomorrow scheduled. NOB labs ordered today. HgA1C ordered. 07/16/24 -?-?-?-?-?-?-?-?-?-?-?-?- 34w 5d 141 lb 2 oz 117/69 Nega tive -?-?-?-?-?-?-?-?-?-?-?-?- Negative 140 31 -?-?-?-?-?-?-?-?-?-?-?-?- SM- no vb lof go od fm nor egular ctx, clots improving, has fu with vascular again today SM- no vb lof good fm nor eg ular ctx, clots improving, has fu with vascular again today discussed IOL at 39 weeks in order to stop lovenox 07/27/24 -?-?-?-?-?-?-?-?-?-?-?-?- 36w 2d 144 lb 100/65 Negative -?-?-?-?-?-?-?-?-?-?-?-?- Negative 130 33 2 -?-?-?-?-?-?-?-?-?-?-?-?- 60 -2 KW- no vb/ lof/ctx. good fm. NST today-reactive. Clot feeling much better. will need 39 week IOL ok for Sat 08/15. GBS and GCC today. long discussion about LARC. information given and is considering IUD. 08/05/24 -?-?-?-?-?-?-?-?-?-?-?-?- 37w 4d 145 lb 2 oz 102/61 Nega tive -?--?-?-?-?-?-?-?-?-?-?-?- Negative 125 37 -?-?-?-?-?-?-?-?-?-?-?-?- JV-no lof, vagin al bleeding or dec fm nst reactive plan 39week iol 08/13/24 -?-?-?-?--?-?-?-?-?-?-?-?- 38w 5d 145 lb 8 oz 110/68 Nega tive -?-?-?-?-?-?-?-?-?-?-?-?- Negative 130 38 1.5 -?-?-?-?-?-?-?-?-?-?-?-?- 80 -1 JV- NST re active. has iol set up for saturday. stop lovenox day prior NST FHR Rate Baby A Baseline: 130 Variability:: Moderate Accelerations:: 15 x 15 Decelerations:: None NST Reactive:: Yes FHR Category:: Category I Uterine Activity:: irregular ROS Constitutional Constitutional: Denies change in weight, fatigue, fever(s), headache(s), poor appetite or weakness Eyes Eyes: Denies blurry vision, change in vision, floaters, seeing flashes or spots in vision ENT HEENT: Denies dizziness, headache(s), loss taste/smell or sore throat Cardiovascular Cardiovascular: Denies chest pain, dizziness, dyspnea, irregular heart rhythm, lightheadedness, palpitations or rapid heart rate Respiratory/Chest Respiratory/Chest: Denies change in mental status, chest tightness, cough, dyspnea or breast pain Gastrointestinal Gastrointestinal: Denies anorexia, chewing difficulty, constipation, diarrhea or weight changes Genitourinary Genitourinary: Denies difficulty urinating, dysuria, flank pain, genital pain, urinary frequency or urinary urgency Musculoskeletal Musculoskeletal: Denies back pain, difficulty walking, extremity pain, joint pain, muscle cramps or muscle weakness Integumentary Integumentary: Denies lesions or unusual bruising Neurologic Neurologic: Denies abnormal movements, abnormal speech, dizziness, numbness, seizure-like activity, syncope or weakness Psychiatric Psychiatric: Denies behavioral changes, change in appetite, confusion, depression, homicidal ideation, suicidal ideation or suicidal thoughts Endocrine Endocrinology: Denies excessive sweating, polydipsia or polyuria Hematologic/Lymphatic Hematologic/Lymphatic: Denies anemia Allergic/Immunologic Allergic/Immunologic: Denies itchy eyes, lip swelling, throat swelling, tongue swelling or wheezing Vital Signs Vital Signs Vital Signs: 08/15/24 09:49 08/15/24 09:49 08/15/24 09:50 Temperature Temperature Source Pulse Rate 87 94 Respiratory Rate Blood Pressure 106/73 BP Systolic 106 BP Diastolic 73 Pulse Ox 08/15/24 09:50 08/15/24 09:51 08/15/24 09:51 Temperature Temperature Source Temporal Pulse Rate Respiratory Rate 12 Blood Pressure BP Systolic BP Diastolic Pulse Ox 98 08/15/24 09:51 Temperature 97.9 F Temperature Source Pulse Rate Respiratory Rate Blood Pressure BP Systolic BP Diastolic Pulse Ox Weight Weight: 145 lb Body Mass Index (BMI) 25.7 Physical Exam Const alert, oriented x3 and no apparent distress General Appearance: cooperative Orientation / Consciousness: awake HEENT normocephalic Neck full ROM Lymph Lymphatic: no lymphadenopathy noted Chest inspection of chest normal Resp normal respiratory effort and normal air movement Effort and Inspection: able to speak in complete sentences and symmetric chest movement GI soft to palpation and non-tender Inspection: gravid Palpation: soft; Negative for tender external exam normal Manual OB Exam: dilated 3, effaced 80 and station -1 Back/Spine normal to inspection Extremity normal to inspection and full ROM Skin no rashes or lesions noted Psych mental status grossly normal Appearance: grossly normal Speech: normal speech Labs Labs Labs: Blood Type A POSITIVE Antibody Screen NEGATIVE Hct 35.6 % (37-47) L Hgb 11.6 g/dL (12.0-15.0) L Obstetrics Ultrasound Syphilis Total Ab Non-reactive Rubella IgG Antibody Non-Reactive (Nonreactive) Hep Bs Antigen Non-Reactive (Nonreactive) Hepatitis C Antibody Non-Reactive (Nonreactive) Chlamydia DNA (MICHELLE) Negative (Negative) N.gonorrhoeae DNA (MICHELLE) Negative (Negative) HIV 1&2 Antibody Non-Reactive (Nonreactive) Group B Strep DNA Negative (Negative) Assessment & Plan (1) Encounter for induction of labor: PLAN: Patient presents IAL, plan expectant management for , pitocin/AROM PRN if needed. Pain management: plans no epidural. GBS negative. Management of any complications: see problem list I have reviewed the [facility] and made any clinically relevant updates. Dr Packer aware of admission, plan and agrees with above (2) Varicose veins during : (3) Rubella non-immune status, antepartum: COMMENT: recommend rubella avoidance and give MMR (4) : QUALIFIERS: Weeks of gestation: 38 weeks Qualified Code(s): Z3A.38 - 38 weeks gestation of COMMENT: GBS neg, first visit 31 weeks. (5) Supervision of high-risk : COMMENT: PRR (urine cx) RADHA 08/22/24 PC Shannon Riley, Joby Dany (6) Acute superficial venous thrombosis of right lower extremity: COMMENT: on lovenox, seeing vascular. NSTs needed weekly. plan IOL at 39 weeks. needs repeat antithrombin testing after delivery. negative for factor V (7) Late care: COMMENT: saw joby vásquez in past, now seeing milagro hurd this . recommend care by physician and plan for hospital (8) HELLP syndrome: COMMENT: APL panel, factor V, ATIII testing ordered. first seen by joby vásquez, evaluated by in third trimester, transferred [facility] for delivery due to hellp syndrome. unable to do baseline labs this due to first visit at 31 weeks. Charges/Coding Multi Select Codes Urinary/Genital Urinary/Genital CPT Codes: No Charge
[2024-08-15] MEDS: Oxytocin 15 Units/NS 250ml 15 UNITS/250 ML IV.SOLN 2 UNITS IV (11:19)
--- NOTE | 2024-08-15 20:56 | EX.PCM.OBVAG ---
Assessment & Plan (1) Vaginal delivery: COMMENT: girl 39.0 IOL KW (2) Encounter for induction of labor: (3) Varicose veins during : (4) Rubella non-immune status, antepartum: COMMENT: recommend rubella avoidance and give MMR (5) : QUALIFIERS: Weeks of gestation: 38 weeks Qualified Code(s): Z3A.38 - 38 weeks gestation of COMMENT: GBS neg, first visit 31 weeks. (6) Supervision of high-risk : COMMENT: PRR (urine cx) RADHA 08/22/24 PC Shannon Riley, Joby Dany (7) Acute superficial venous thrombosis of right lower extremity: COMMENT: on lovenox, seeing vascular. NSTs needed weekly. plan IOL at 39 weeks. needs repeat antithrombin testing after delivery. negative for factor V (8) Late care: COMMENT: saw joby vásquez in past, now seeing milagro hurd this . recommend care by physician and plan for hospital (9) HELLP syndrome: COMMENT: APL panel, factor V, ATIII testing ordered. first seen by joby thalia, evaluated by SM in third trimester, transferred [place] for delivery due to hellp syndrome. unable to do baseline labs this due to first visit at 31 weeks. Maternal Data Information RADHA Calculator Estimated Delivery Date Method Current WG Current Estimate 08/22/24 LMP (Certain) 39w 0d Final RADHA: 08/22/24 Final RADHA Source: US >20 weeks Gestational age: 39.0 Vaginal Delivery Maternal Presentation Maternal Presentation: Medically Indicated Induction Maternal Presentation: Presented to unit for induction of labor for superficial clots at 39.0 weeks Type of Induction: Pitocin Medical Reason for Induction: Maternal Medical Condition: list: (superficial venous thrombosis) Vaginal Delivery Information Procedure Performed: Spontaneous Vaginal Delivery Surgeon/Practitioner: Maddi Bosch Date of Procedure: 08/15/24 Pre-Procedure Diagnosis: see problem list Post-Procedure Diagnosis: same Type of anesthesia: None Estimated Blood Loss: 200 Time of Delivery: 20:43 Findings Description of procedure: Progressed well to 10cm dilated and made steady progress with effective maternal pushing. Delivered the head in MED presentation. The head was delivered atraumatically and a loose nuchal cord x2 was identified and was easily reduced over the 's head. The anterior and posterior shoulders delivered without complication followed by the rest of the and the infant was placed on the maternal abdomen. Delayed cord clamping was employed for approximately 3 minutes. Cord was clamped and cut and gentle traction was applied to the cord and the placenta delivered spontaneously. Immediately following, it was noted to be intact with a 3 vessel cord. Uterine bleeding stable. The perineum and vagina were inspected and noted to have no laceration. EBL was 200cc. Patient and tolerated delivery well. Apgars 8/9. Dr Suh notified of vaginal delivery and orders reviewed. Physician agrees with current plan of care. 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
--- NOTE | 2024-08-15 21:02 | DCINST_ITS ---
Discharge Instructions Diet Discharge Diet: No restrictions DC O2, CPAP, BIPAP needs Additional Home O2 Discharge instructions: No Dressing / Incision Discharge Activity: Return to Normal Activity May resume sexual activity in: 6-8 weeks Dressing / Incision Call your doctor if you observe: Fever of 101 or Higher, Coldness, Increased Pain, Numbness or Tingling, Change in Color, Inability to urinate, Inability to have a bowel movement, Using more than 1 pad per hour, Shortness of breath, Dizziness, Fainting spells, Swelling in the ankles, Chest pain, Increased palpitations (irregular heartbeat), Calf discomfort and Uncontrolled pain Follow Up Care Please Follow Up With: Maddi Bosch CNM When: Please call the office to schedule your follow up appointment in 6 weeks. If you had high blood pressure please call to schedule an appointment in 2 weeks. Test Results: Test results from this visit will be discussed in further detail at your follow- up appointment, if applicable. Discharge Plan Admission Admit Date/Time: 08/15/24 08:47 Attending Provider: Maddi Bosch Primary Care Provider: Care PhysicianTanya Primary Discharge Orders/Prescriptions Prescriptions: No Action enoxaparin [Lovenox] 80 mg/0.8 mL syringe 80 mg subcut DAILY 30 Days Qty: 24 2RF 28-800 mg-mcg tablet 1 tab PO DAILY Referrals / Follow Up: Care PhysicianTanya Primary [Primary Care Provider] -
[2024-08-15] MEDS: Oxytocin 15 Units/NS 250ml 15 UNITS/250 ML IV.SOLN 83 UNITS IV (21:53)
[2024-08-16] VITALS (10 sets, daily range): BP systolic 93–108; BP diastolic 50–70; PULSE 55–92; RESP 16; TEMP 36.2–36.6; O2SAT 97
[2024-08-16] MEDS: Enoxaparin 80 MG/0.8 ML Syringe SC (03:09)
--- NOTE | 2024-08-16 11:04 | VDLE_ITS ---
Reason For Study: BLE Pain / HX SVT RIGHT LEFT CFV is compressible, spontaneous, phasic, CFV is compressible, spontaneous, phasic, competent and demonstrates normal competent, and demonstrates normal augmentation. augmentation. FV is compressible, spontaneous, phasic, FV is compressible, spontaneous, phasic, competent and demonstrates normal competent and demonstrates normal augmentation. augmentation. POP V is compressible, spontaneous, phasic, POP V is compressible, spontaneous, phasic, competent and demonstrates normal competent and demonstrates normal augmentation. augmentation. T/P Trunk is compressible. T/P Trunk is compressible. PTV is compressible. PTV is compressible. RT PerV is compressible. LT PerV is compressible. GSV is Dilated and NONCOMPRESSIBLE from prox GSV is Dilated and NONCOMPRESSIBLE from calf to mid thigh. Finding is consistent with ankle/medial foot to mid thigh. Finding is ACUTE SVT. consistent with ACUTE SVT. ASV/VV anterior ankle to knee is Dilated and ASV/VV ankle to knee is Dilated and NONCOMPRESSIBLE consistent with ACUTE SVT. NONCOMPRESSIBLE consistent with ACUTE SVT. Vessel appears to connect with GSV at knee. Vessel appears to connect with GSV at knee. SSV is compressible SSV is compressible. Compare to study 08/05/2024. Procedure This is a venous duplex using B-mode, color flow and spectral Doppler. Exam performed portable in patient room. The exam was diagnostic. A preliminary report was called and/or faxed to [facility] Bosch. VL/Venous Duplex US - Igor Extrem Interpretation Summary Acute superficial vein thrombosis noted in the right great saphenous vein in mi d thigh to calf and adjacent varicosities; unchanged. Acute superficial vein thrombosis noted in left great saphenous vein from ankle to mid thigh, distal calf varicosities. Deep veins of the bilateral lower extremities are patent and compressible segme ntally. There is no evidence of bilateral lower extremity deep vein thrombosis. Ordering Physician: Maddi Bosch Referring Physician: Sharif Louis MD Performed By: Chad Coombs RVT
--- NOTE | 2024-08-16 11:05 | PCM.PN.OB ---
Subjective Subjective Patient doing well. Tolerating PO. Ambulating and voiding without difficulty. Does have increased pain with the right leg with Hx of superficial clots. Does see Dr Louis for these and he was consulted for increased pain, and redness in upper thigh. Feeding well. Denies chest pain, shortness of breath, fevers, chills, lightheadedness. Objective Data Objective Data Vital Signs: Vital Signs Temp Pulse Resp BP Pulse Ox O2 Del Method 98 F 74 16 101/56 L 97 Room Air 08/16/24 08:30 08/16/24 08:30 08/16/24 08:30 08/16/24 08:30 08/16/24 03:22 08/16/24 03:22 Oxygen Delivery Method Room Air Weight: 145 lb Body Mass Index (BMI) 25.7 Intake & Output: Intake and Output for Last 24 Hours 08/14/24 08/15/24 08/16/24 23:59 23:59 23:59 Intake Total 250.00 / 250.00 982.20 / 982.20 Output Total 450 / 450 900 / 900 Balance -200.00 / -200.00 82.20 / 82.20 Lab / Micro Data Attestation: I reviewed the patient's lab results. 08/15/24 09:05 ROS Constitutional Constitutional: Reports systems reviewed and no addt'l complaints, except as documented; Denies anorexia or headache(s) Cardiovascular Cardiovascular: Reports systems reviewed and no addt'l complaints, except as documented; Denies dizziness, dyspnea, nausea or tachypnea Respiratory/Chest Respiratory/Chest: Reports systems reviewed and no addt'l complaints, except as documented; Denies cough, dyspnea, shortness of breath at rest or tachypnea Gastrointestinal Gastrointestinal: Reports systems reviewed and no addt'l complaints, except as documented; Denies abdominal pain, constipation or nausea Genitourinary Genitourinary: Reports systems reviewed and no addt'l complaints, except as documented; Denies burning urination, difficulty urinating, dysuria, urinary frequency or urinary incontinence Musculoskeletal Musculoskeletal: Reports systems reviewed and no addt'l complaints, except as documented Integumentary Integumentary: Reports systems reviewed and no addt'l complaints, except as documented Neurologic Neurologic: Reports systems reviewed and no addt'l complaints, except as documented; Denies abnormal speech, dizziness or headache(s) Psychiatric Psychiatric: Reports systems reviewed and no addt'l complaints, except as documented Endocrine Endocrinology: Reports systems reviewed and no addt'l complaints, except as documented Hematologic/Lymphatic Hematologic/Lymphatic: Reports systems reviewed and no addt'l complaints, except as documented Physical Exam Const alert, oriented x3 and no apparent distress Neck full ROM Resp normal respiratory effort, normal air movement and no retractions Effort and Inspection: able to speak in complete sentences and symmetric chest movement GI soft to palpation Bladder / Kidney Exam: bladder normal to palpation Uterus Palpation: uterus fundus Extremity full ROM and normal capillary refill Right Lower Extremity: upper leg Positive for inspection (redness noted to right inner thish) and other (tender while ambulating ) Psych mental status grossly normal, thought process normal and cooperative Assessment & Plan (1) Vaginal delivery: COMMENT: girl 39.0 IOL KW (2) Varicose veins during : (3) Rubella non-immune status, antepartum: COMMENT: recommend rubella avoidance and give MMR (4) : QUALIFIERS: Weeks of gestation: 38 weeks Qualified Code(s): Z3A.38 - 38 weeks gestation of COMMENT: GBS neg, first visit 31 weeks. (5) Supervision of high-risk : COMMENT: PRR (urine cx) RADHA 08/22/24 PC Shannon Riley, Joby Dany (6) Acute superficial venous thrombosis of right lower extremity: COMMENT: on lovenox, seeing vascular. NSTs needed weekly. plan IOL at 39 weeks. needs repeat antithrombin testing after delivery. negative for factor V PLAN: Consulted with Dr Louis for worsening sx in left leg. repeat of bilateral venous doppler ordered NSAIDs Warm compresses. Lovenox (7) Late care: COMMENT: saw joby vásquez in past, now seeing milagro hurd this . recommend care by physician and plan for hospital (8) HELLP syndrome: COMMENT: APL panel, factor V, ATIII testing ordered. first seen by joby vásquez, evaluated by SM in third trimester, transferred [facility] for delivery due to hellp syndrome. unable to do baseline labs this due to first visit at 31 weeks. Charges/Coding Multi Select Codes Urinary/Genital Urinary/Genital CPT Codes: No Charge
[2024-08-16] MEDS: Naproxen 500 MG Tablet PO ×2 (11:14→18:45)
--- NOTE | 2024-08-16 20:55 | NURSING ---
Rober wrap on lt leg, YANELY hose on BL legs. DVT is previously diagnosed and doppler done 08/16. Reddened area noted approximately 1x3 inches on left thigh. Okay to use rober wrap and kpad per vascular who is consulted. Painful with movement but pt denies pain when resting.
--- NOTE | 2024-08-16 22:55 | NURSING ---
Pt refuses MMR immunization. Education provided to patient.
[2024-08-17 02:02] VITALS: BP 99/56; PULSE 55; PULSE 57; RESP 18; TEMP 36.4; O2SAT 98
--- NOTE | 2024-08-17 03:49 | PN.OBGYN_ITS ---
Subjective Subjective Patient doing well without complaints. Tolerating PO. Ambulating and voiding without difficulty. Feeding well. Denies chest pain, shortness of breath, calf pain/swelling, fevers, chills, lightheadedness. Objective Data Objective Data Vital Signs: Vital Signs Temp Pulse Resp BP Pulse Ox O2 Del Method 97.6 F L 57 L 18 99/56 L 98 Room Air 08/17/24 02:02 08/17/24 02:02 08/17/24 02:02 08/17/24 02:02 08/17/24 02:02 08/17/24 02:02 Oxygen Delivery Method Room Air Weight: 145 lb Body Mass Index (BMI) 25.7 Intake & Output: Intake and Output for Last 24 Hours 08/15/24 08/16/24 08/17/24 23:59 23:59 23:59 Intake Total 250.00 / 250.00 982.20 / 982.20 Output Total 450 / 450 900 / 900 Balance -200.00 / -200.00 82.20 / 82.20 Lab / Micro Data Attestation: I reviewed the patient's lab results. 08/15/24 09:05 ROS Constitutional Constitutional: Reports systems reviewed and no addt'l complaints, except as documented; Denies anorexia or headache(s) Cardiovascular Cardiovascular: Reports systems reviewed and no addt'l complaints, except as documented; Denies dizziness, dyspnea, nausea or tachypnea Respiratory/Chest Respiratory/Chest: Reports systems reviewed and no addt'l complaints, except as documented; Denies cough, dyspnea, shortness of breath at rest or tachypnea Gastrointestinal Gastrointestinal: Reports systems reviewed and no addt'l complaints, except as documented; Denies abdominal pain, constipation or nausea Genitourinary Genitourinary: Reports systems reviewed and no addt'l complaints, except as documented; Denies burning urination, difficulty urinating, dysuria, urinary frequency or urinary incontinence Musculoskeletal Musculoskeletal: Reports systems reviewed and no addt'l complaints, except as documented Integumentary Integumentary: Reports systems reviewed and no addt'l complaints, except as documented Neurologic Neurologic: Reports systems reviewed and no addt'l complaints, except as documented; Denies abnormal speech, dizziness or headache(s) Psychiatric Psychiatric: Reports systems reviewed and no addt'l complaints, except as documented Endocrine Endocrinology: Reports systems reviewed and no addt'l complaints, except as documented Hematologic/Lymphatic Hematologic/Lymphatic: Reports systems reviewed and no addt'l complaints, except as documented Physical Exam Const alert, oriented x3 and no apparent distress Neck full ROM Resp normal respiratory effort, normal air movement and no retractions Effort and Inspection: able to speak in complete sentences and symmetric chest movement GI soft to palpation Bladder / Kidney Exam: bladder normal to palpation Uterus Palpation: uterus fundus firm Extremity normal to inspection and full ROM Psych mental status grossly normal, thought process normal and cooperative Assessment & Plan (1) Vaginal delivery: COMMENT: girl 39.0 IOL KW PLAN: s/p PPD # 2 1. routine post delivery care 2. breast feeding- support given 3. rh positive 4. rubella immune 5. Discharge home (2) Varicose veins during : (3) Rubella non-immune status, antepartum: COMMENT: recommend rubella avoidance and give MMR (4) : QUALIFIERS: Weeks of gestation: 38 weeks Qualified Code(s): Z 3A.38 - 38 weeks gestation of COMMENT: GBS neg, first visit 31 weeks. (5) Supervision of high-risk : COMMENT: PRR (urine cx) RADHA 08/22/24 PC Shannon Riley, Joby Dany (6) Acute superficial venous thrombosis of right lower extremity: COMMENT: on lovenox, seeing vascular. NSTs needed weekly. plan IOL at 39 weeks. needs repeat antithrombin testing after delivery. negative for factor V (7) Late care: COMMENT: saw joby thalia in past, now seeing milagro hurd this . recommend care by physician and plan for hospital (8) HELLP syndrome: COMMENT: APL panel, factor V, ATIII testing ordered. first seen by joby vásquez, evaluated by in third trimester, transferred [place] for delivery due to hellp syndrome. unable to do baseline labs this due to first visit at 31 weeks. Charges/Coding Multi Select Codes Urinary/Genital Urinary/Genital CPT Codes: No Charge
[2024-08-17] MEDS: Naproxen 500 MG Tablet PO (04:05)
[2024-08-17 08:42] VITALS: BP 103/59; PULSE 71
[2024-08-17 08:45] VITALS: BP 103/59; PULSE 71; RESP 16; TEMP 36.5; O2SAT 98
[2024-08-17] MEDS: Enoxaparin 80 MG/0.8 ML Syringe SC (10:06)
[2024-08-17 12:14] VITALS: RESP 16
--- NOTE | 2024-08-24 11:07 | CASEMGMT ---
Social Work Assessment Labor and Delivery Unit Patient Address:[address] [place] [address] [address], [place] [address] Phone number: [phone] Date of Referral: 08/15/24 Time of Referral:? [id number] Referred By: Maddi Bosch Date of Intervention: 08/17/24?? Time of Intervention:?112 Reason for Referral:? depression Sw completed chart review and acknowledges social work consult due to maternal mental health history and experience with depression. Sw presented to bedside and introduced self to mother of baby (MOB- Berenice) and father of baby (FOB-Dany). Sw explained reason for sw involvement and completed psychosocial assessment. History obtained from: medical records, MOB and FOB. Household composition: Currently residing in the family home is CHARLIE GIORDANO, their three older children: Osvaldo (4), Shannon (2) and Linn (1). [place] baby to be added to residence when ready for discharge. Parents deny any issues or concerns with housing, reporting that it is safe and secure. Patient's parent/guardian status:? ?Parents state that they met each other by being in the same [facility] community as each other. They have been for 6 years. No concerns reported of domestic violence or intimate partner violence. Medical History: ?GIULIANA is 29 year old female who is 4, para 3- now 4 following labor and delivery of . GIULIANA started care with [facility], but was directed to [facility] at end of due to DVT. . GIULIANA presented to hospital for induction of labor due to pre-eclampsia. GIULIANA delivered baby via vaginal delivery at 39 weeks gestation on 08/15/24. Baby girl, Mele, was born weighing 6lb 7oz with apgars of 8 and 9 at one and five minutes of life, respectfully. GIULIANA states that she is breast feeding and baby will be followed by Haily Nash for / well check care. Educational Status:? Both parents completed the 8th grade as is customary in the [facility] culture. Financial Status: CHARLIE is gainfully employed at a [employer], he is not given any extra time off for paternity leave. Supplies: Parents have all necessary baby supplies, including: car seat, safe sleep space, clothes, diapers and wipes. Childcare/Caregiver(s):?MOB will be the primary caregiver to baby, along with FOB and maternal family members. Transportation:?? Parents use a horse and buggy for primary means of transportation, and hire a lunch truck driver for medical appointments and other longer distance needs. Programs/Agencies Involved: ???:Parents are not connected to any community resources that assist them financially. Children Services/Legal Issues:??No history of children services involvement, no issues or concerns warranting referral to be made at this time. ? Behavioral Health Issues: ??Mental Health History: MOB states that she did experience depression after her first baby was born. MOB states that during that time she was sad, tearful and did not have any energy. MOB states that she did not struggle following her other deliveries. MOB states that she thinks she was too busy managing other children to have symptoms. MOB states at this time she feels well, does not feel sad, depressed, or anxious about anything. ??? Substance Use History: Parents deny substance use prior to and during . ?? Family History:??Parents deny family history of substance use, addiction or significant mental health diagnoses. ??? Drug Screens: No drug screens observed during chart review. Family/Social Stressors:? Parents deny any issues, concerns or stressors at this time. Support Systems: MOB states that CHARLIE is her biggest support person. Sw asked FOB if he would be able to recognize if MOB were struggling with her mental health during this period? FOB states that he thinks he would be able to. MOB states that they have good communication and this is a conversation she would feel comfortable having if she were to struggle. Depression/Shaken Baby/Safe Sleeping:Sw educated parents on signs and symptoms of baby blues and mood and anxiety disorders to be mindful of during this period. Parents agree that FOB would be able to recognize if MOB were struggling, and he would know how to help and support her. Sw educated parents on shaken baby prevention and ABCs of safe sleep, parents express understanding. ASSESSMENT:? MOB and baby admitted following labor and delivery of . MOB has mental health history positive for depression. MOB denies former mental health issues, including anxiety and depression. Parents are Omar and have family and friends who they state are supportive and involved to help care for other children while FOB is at work. MOB states that she has family she can also talk to if she were to struggle with her mental health. Parents have obtained all necessary baby supplies. Parents were quiet during completion of assessment, but answered questions asked. Parents encouraged to continue to communicate openly during this period about ways that FOB can be helpful and supportive if MOB were to struggle. Parents express understanding. PLAN:?? No other services requested or indicated. MOB and baby to be discharged when medically ready. Parents were provided literature regarding: signs and symptoms of baby blues and mood and anxiety disorders, Help Me Grow, shaken baby prevention, ABCs of safe sleep and a list of county resources that are available for them should any needs present themselves. Lou Malloy, GAMING TABLE OPERATOR, TRUCK SHOP MECHANIC
== END 2024-08-17 12:40 | disposition home or self-care (01) | DRG 806 ==
PROVIDERS: Admitting Provider Advanced Practice Midwife; Visit Provider Advanced Practice Midwife
DX: O87.0 Superficial thrombophlebitis in the puerperium (principal); Z37.0 Single live birth; I82.811 Embolism and thrombosis of superficial veins of right lower extremity; O87.4 Varicose veins of lower extremity in the puerperium; O69.81X0 Labor and delivery complicated by cord around neck, without compression, not applicable or unspecified; Z3A.39 39 weeks gestation of pregnancy; Z79.01 Long term (current) use of anticoagulants; Z87.59 Personal history of other complications of pregnancy, childbirth and the puerperium
CPT/HCPCS: 59025; 59050; 85025; 86780; 86850; 86900; 86901; 93970; 99221; J7120; G0378